=== PATIENT | female | born 1945 | race Caucasian/White ===

== ENCOUNTER 2018-08-24 18:37 | Emergency (ER) | payer MEDICARE, MEDICAID, SELFPAY ==
[2018-08-24] VITALS (9 sets, daily range): BP systolic 126–170; BP diastolic 41–89; PULSE 31–35; RESP 11–16; TEMP 36.6; O2SAT 95–97
--- NOTE | 2018-08-24 18:50 | ED.GENADUL_ITS ---
Discharge Plan Disposition Patient Disposition: TOBI [facility]WELL ([facility]) Condition: Critical Discharge Details Chief Complaint: SOB Clinical Impression: Third degree heart block, Bradycardia Primary Care Provider: Mariteta Villela ED Provider: Rusty Maria Home Meds and New Rx's Prescriptions: No Action vitamin E 200 unit capsule 200 unit PO DAILY RF: 0 cholecalciferol (vitamin D3) 1,000 unit capsule 1,000 unit PO DAILY RF: 0 ascorbic acid (vitamin C) [Vitamin C] 500 MG tablet 500 mg PO DAILY RF: 0 magnesium 250 MG tablet 250 mg PO TID RF: 0 levothyroxine [Synthroid] 112 MCG tablet 112 mcg PO DAILY RF: 0 zinc gluconate-zinc picolinate 30 MG capsule 30 mg PO ONCE RF: 0 VITAMIN B COMPLEX 1 EACH tablet 1 tab-cap PO DAILY RF: 0 Discharge Data Discharge Date/Time-TO BE ENTERED AT DEPARTURE: 08/24/18 21:03 Medical Decision Making 19:00 --73-year-old female with history of hypothyroidism, here with dyspnea on exertion and palpitations, sent from primary care physician with concern for second or third-degree heart block on ECG. ECG reviewed and interpreted by me: Third-degree heart block with ventricular escape rate at 31 bpm. BP stable. Pacer pads applied. --I obtained and reviewed outside hospital records: Primary care [employer]LE[employer] OR [employer]PER[employer] note from Marietta Villela, TELETYPE OR [employer]ARD OPERATOR was reviewed -patient was seen today in the office and had an EKG that appears to be third-degree heart block. 19:35 -- I called [facility] and no beds available. Possible available beds tomorrow. Patient refuses to be care for at [facility] because of prior experience and requests [facility] consultation - she understands [facility] is farther. Call to [facility] transfer center to request cardiology consultation and transfer. 19:45 -- Spoke with Dr. Loving who will accept patient in emergent transfer. ECG sent for review. -- Labs reviewed: no electrolyte abnormalities. TSH nl. No leukocytosis. AST and ALT elevated - unclear etiology. These have not been elevated on prior labs in system. Patient consents to transfer. HPI General Mode of arrival: ambulatory . Date/Time Provider Initiated Documentation: 08/24/18 18:49 . Limitations to Documentation: no limitations . Information obtained by: patient . HPI Narrative: 73-year-old female presents to the emergency department after referral from primary care physician for concern for heart block. Patient notes that she is been having dyspnea on exertion and palpitations over the past 2 days. Patient denies chest pain. No syncope. Patient did have recent dental infection that was treated with 10-day course of penicillin. She denies fever. She is quite anxious about seeking care and treatment. I was asked to speak with the patient in the waiting room about recommendation from primary care physician to be seen in the emergency department. Patient was initially reluctant to register and be seen. After prolonged discussion in the waiting room, she was agreeable to medical screening and initiating workup. Related Data Home Medications Medication Instructions Recorded Confirmed Vitamin B Complex 1 tab-cap PO DAILY tab-cap 08/20/13 08/24/18 ascorbic acid (vitamin C) [Vitamin 500 mg PO DAILY 08/20/13 08/24/18 C] levothyroxine [Synthroid] 112 mcg PO DAILY tab-cap 08/20/13 08/24/18 magnesium 250 mg PO TID 08/20/13 08/24/18 zinc gluconate-zinc picolinate 30 mg PO ONCE 08/20/13 08/24/18 cholecalciferol (vitamin D3) 1,000 1,000 unit PO DAILY 09/12/18 09/12/18 unit capsule vitamin E 200 unit capsule 200 unit PO DAILY 09/12/18 09/12/18 Allergies Allergy/AdvReac Type Severity Reaction Status Date / Time No Known Drug Allergies Allergy Unverified 09/12/18 11:38 Review of Systems Review of Systems All systems reviewed & are unremarkable except as noted in HPI and below Constitutional Denies fever(s) Cardiovascular Reports dyspnea on exertion Respiratory Reports dyspnea on exertion [facility] Medical History Family history of ovarian cancer Hypothyroid Surgical History Dilation and curettage Family History Mother No problems noted. Social History Smoking/Tobacco Use Status: Current-Occasional Drug use: Occasionally Additional Social history: pt is not alone to assess privately Exam Const General: well developed and anxious Orientation: alert and awake HENMT Mouth: moist mucous membranes Eyes Conjunctivae: normal conjunctivae Sclera: normal sclerae Neck Neck: trachea midline, supple and no JVD Thyroid: no masses and nontender Resp Auscultation: clear to auscultation bilaterally, no rales, no rhonchi and no wheezes Cardio Jugular venous pressure: no JVD Rate: regular rate and not tachycardic Rhythm: regular rhythm Heart Sounds: murmur systolic I/ GI Palpation: soft, not firm, no guarding, no masses, not rigid and nontender Skin General skin exam: no rashes or lesions noted Neuro General: alert, awake, oriented x3 and tone normal Extrem General: no calf tenderness bilaterally and no edema Psych Appearance: grossly normal Speech and Movement: speech and movement normal Affect: anxious affect
[2018-08-24 19:40] LABS: Abs Immature Grans 0.03 k/cumm (0.0-0.09); Absolute Basophil Count 0.02 k/cumm (0.0-0.2); Absolute Eosinophil Count 0.05 k/cumm (0.0-0.7); Absolute Lymphocyte Count 1.76 k/cumm (1.2-3.4); Absolute Monocyte Count 0.86 k/cumm (0.11-0.7); Basophils % 0.2; Eosinophils % 0.6; HCT 39.1 % (36.0-46.0); HGB 12.9 g/dL (12.0-15.5); Immature Grans % 0.3; Lymphocytes % 20.4; Mean Corpuscular Hemoglobin 30.5 pg (27.0-33.0); Mean Corpuscular Volume 92.4 fL (80-95); Mean Platelet Volume 11.8 fL (8.0-11.0); Neutrophils % 68.5; Platelet Count 190 x1000/uL (130-400); RBC 4.23 m/cumm (4.00-5.20); White Blood Cell Count 8.62 k/cumm (4.4-10.8)
[2018-08-24 19:52] LABS: ALT 161 U/L (12-78); AST 75 U/L (15-37); Albumin 3.4 g/dL (3.4-5.0); Alkaline Phosphatase 93 U/L (46-116); Anion Gap 11.4 mmol/L (3-11); BUN 19 mg/dL (7-18); Bilirubin, Total 0.4 mg/dL (0.2-1.0); CO2 24.6 mmol/L (21.0-32.0); CREATININE 0.94 mg/dL (0.55-1.02); Chloride 105 mmol/L (98-107); Estimated GFR 58.21 (mL/min/1.73m2); Glucose 111 mg/dL (70-100); Magnesium 1.9 mg/dL (1.8-2.4); Sodium 141 mmol/L (136-145); Total Protein 6.8 g/dL (6.4-8.2); Troponin I 0.05 ng/mL (0.00-0.06)
== END 2018-08-24 21:03 | disposition short-term general hospital (02) ==
PROVIDERS: Emergency Provider Student in an Organized Health Care Education/Training Program; PCP Nurse Practitioner Family
DX: I44.2 Atrioventricular block, complete (principal); R00.2 Palpitations; E03.9 Hypothyroidism, unspecified; R00.1 Bradycardia, unspecified
CPT/HCPCS: 36415; 80053; 93005; 99284; 83735; 84443; 84484; 85025; 93010

== ENCOUNTER 2018-09-05 11:16 | Outpatient (REF) | payer MEDICARE, MEDICAID, SELFPAY ==
[2018-09-05 19:27] LABS: Hemoglobin A1C 5.8 % (4.5-6.2)
[2018-09-05 20:00] LABS: Iron 75 ug/dL (50-175); Total Iron Binding Capacity 317 ug/dL (250-450); Transferrin Sat 24 % (15-50)
[2018-09-05 20:14] LABS: Ferritin 226 ng/mL (8-388)
[2018-09-07 10:32] LABS: Hepatitis C Ab w Rflx HCV PCR Negative (NEGAT)
[2018-09-07 11:36] LABS: Hepatitis B Surface Ag Negative (NEGAT)
[2018-09-07 11:46] LABS: HBs Antibody, Quant <3.1 mIU/mL; Hepatitis B Surface Ab Negative
== END 2018-09-05 11:36 ==
LOC: NCHCN 11:16
PROVIDERS: PCP Nurse Practitioner Family; Visit Provider Nurse Practitioner Family
DX: Z95.0 Presence of cardiac pacemaker (principal); R94.5 Abnormal results of liver function studies; R74.8 Abnormal levels of other serum enzymes
CPT/HCPCS: 86706; 86803; 87340; 82728; 83036; 83540; 83550

== ENCOUNTER → 2018-09-12 11:23 | Outpatient (BNVA) | payer MEDICARE, MEDICAID, SELFPAY | PROVIDERS: PCP Nurse Practitioner Family; Visit Provider Nurse Practitioner Primary Care | DX: I44.2 Atrioventricular block, complete (principal); R03.0 Elevated blood-pressure reading, without diagnosis of hypertension; Z45.018 Encounter for adjustment and management of other part of cardiac pacemaker | CPT/HCPCS: 93288; 99204; 99215 ==

== ENCOUNTER → 2018-11-14 11:49 | Outpatient (BNVA) | payer MEDICARE, MEDICAID, SELFPAY | PROVIDERS: PCP Nurse Practitioner Family; Visit Provider Nurse Practitioner Primary Care | DX: I44.2 Atrioventricular block, complete (principal); R03.0 Elevated blood-pressure reading, without diagnosis of hypertension; I47.1 Supraventricular tachycardia; Z45.018 Encounter for adjustment and management of other part of cardiac pacemaker | CPT/HCPCS: 93288; 99214 ==

== ENCOUNTER 2019-02-14 09:24 | Outpatient (REF) | payer MEDICARE, MEDICAID, SELFPAY ==
[2019-02-14 22:18] LABS: ALT 20 U/L (14-59); AST 17 U/L (15-37); Albumin 3.8 g/dL (3.4-5.0); Alkaline Phosphatase 91 U/L (46-116); Bilirubin, Direct 0.09 mg/dL (0.00-0.20); Bilirubin, Total 0.6 mg/dL (0.2-1.0); Total Protein 7.4 g/dL (6.4-8.2)
[2019-02-14 22:33] LABS: Calculated LDL 163 mg/dL; Cholesterol 226 mg/dL (50-200); HDL Cholesterol 41 mg/dL (40-60); Triglyceride 110 mg/dL (30-150)
== END 2019-02-14 09:44 ==
LOC: NCHCN 09:24
PROVIDERS: PCP Nurse Practitioner Family; Visit Provider Nurse Practitioner Family
DX: R94.5 Abnormal results of liver function studies (principal); E78.89 Other lipoprotein metabolism disorders
CPT/HCPCS: 80061; 80076

== ENCOUNTER 2019-03-08 01:03 | Outpatient (CLI) | payer MEDICARE, MEDICAID, SELFPAY ==
--- NOTE | 2019-03-08 13:00 | DI.MAMMO_ITS ---
EXAM: MG MAMMO SCREENING CLINICAL HISTORY: SCREENING , [facility] Z00.00. TECHNIQUE: Mammograms were interpreted according to the usual protocol including computer analysis w [employer] CAD system, tomosynthesis and C-view imaging. FINDINGS: The breasts are of moderate density with fairly symmetrical distribution of fibroglandular tissue. N o dominant mass or clumped microcalcification identified in either breast. The current examination is compared with previous examinations including May 2013 and there has been no gross interval pollard ge appearance comparison the previous studies. IMPRESSION: No specific evidence of malignancy at this time. Routine screening examinations are suggested at year ly intervals in this age group according to the ACS ACR guidelines. Category 1. Breast density, categ oryB. BI-RADS Cat 1 - Negative. Breast Density - Category B - Scattered areas of fibroglandular density.
== END 2019-03-08 01:23 ==
PROVIDERS: PCP Nurse Practitioner Family; Visit Provider Nurse Practitioner Family
DX: Z12.31 Encounter for screening mammogram for malignant neoplasm of breast (principal)
CPT/HCPCS: 77063; 77067

== ENCOUNTER 2019-07-03 13:35 | Emergency (ER) | payer MEDICARE, MEDICAID, SELFPAY ==
[2019-07-03 13:44] VITALS: BP 163/65; PULSE 79; RESP 18; TEMP 36.5; O2SAT 97
--- NOTE | 2019-07-03 14:41 | DI.RAD_ITS ---
EXAM: XR WRIST RT COMPLETE INDICATION: pain, injury. COMPARISON: No exams were available for comparison TECHNIQUE: 2D digital imaging was performed. FINDINGS: There is a transverse fracture through the distal metaphysis of the right radius. There is dorsal an gulation and posterior displacement of the distal fracture. There is a comminuted fracture of the di stal right ulna. There is impaction and mild displacement of the fracture noted. There are mild deg enerative changes seen at the 1st carpometacarpal joint. There is soft tissue swelling about the wri st. IMPRESSION: Fractures involving the distal right radius and ulna as described above.
--- NOTE | 2019-07-03 14:55 | DI.RAD_ITS ---
EXAM: XR HAND RT COMPLETE INDICATION: pain, injury. COMPARISON: No exams were available for comparison TECHNIQUE: 2D digital imaging was performed. FINDINGS: There are again seen fractures involving the distal radius and ulna. These are described on the x-ra y of the right wrist. No other fracture or dislocation of the hand is seen. There are mild degenera tive changes seen in the hand and wrist. There is soft tissue swelling of the wrist. IMPRESSION: Distal right radial and ulnar fractures noted. Please see the report on the x-ray of the right wrist . No other fracture or dislocation is identified.
--- NOTE | 2019-07-03 16:30 | ED.GENADUL_ITS ---
Discharge Plan Disposition Patient Disposition: HOME Condition: Stable Discharge Details Chief Complaint: Orthopedic Clinical Impression: Fracture of wrist Primary Care Provider: Marietta Villela ED Provider: Marija Clements Home Meds and New Rx's Prescriptions: No Action vitamin E 200 unit capsule 200 unit PO DAILY RF: 0 cholecalciferol (vitamin D3) 1,000 unit capsule 1,000 unit PO DAILY RF: 0 ascorbic acid (vitamin C) [Vitamin C] 500 MG tablet 500 mg PO DAILY RF: 0 magnesium 250 MG tablet 250 mg PO TID RF: 0 levothyroxine [Synthroid] 112 MCG tablet 112 mcg PO DAILY RF: 0 zinc gluconate-zinc picolinate 30 MG capsule 30 mg PO ONCE RF: 0 VITAMIN B COMPLEX 1 EACH tablet 1 tab-cap PO DAILY RF: 0 hydrocodone-acetaminophen 5-325 mg tablet 1 tab PO Q8H PRN PRN (Reason: pain) Qty: 6 RF: 0 acetaminophen 500 mg tablet 500 mg PO Q6H PRN PRN (Reason: pain) Qty: 60 RF: 3 ibuprofen 600 mg tablet 600 mg PO TID PRNQty: 30 RF: 3 Discharge Instructions Instructions: Wrist Fracture in Adults (ED) Additional Instructions: Rest. Activities as tolerated. Elevate injury to prevent swelling. Do not wear sling at night. Keep wrist splint in place, clean and dry. Tylenol every 6 hours for soreness if needed over the counter for comfort. Orthopedic doctors office will call you in the morning and arrange for a time for you to arrive to the emergency room. Nothing to eat or drink after midnight tonight Return for any worsening or concerns sooner if needed. Referrals: Malik Cervantes MD [ [facility] STAFF PHYSICIAN] - Discharge Data Discharge Date/Time-TO BE ENTERED AT DEPARTURE: 07/03/19 16:47 Medical Decision Making <SANDRA Lazo - Last Filed: 07/04/19 17:06> Very pleasant 74-year-old patient who slipped on ice falling onto the right wrist. Patient presents with a deformity to the wrist, focal wrist pain. No open wounds. Distal neurovascularly intact. Patient has no other apparent injuries. Patient has no other sites of pain. X-rays reveal radial and ulnar fractures of the right wrist with angulation and displacement. Spoke with Dr. Cervantes who reviewed patient's x-rays and recommends intraoperative reduction of this patient's fracture. Office will call the patient tomorrow morning to arrange for surgical reduction tomorrow. Recommended patient remain n.p.o. overnight, volar splint be placed. Dr. Maria splinted the patient Surgical staff to call the patient in the morning to arrange for surgical reduction tomorrow. Patient to be n.p.o. after midnight. Rice encouraged. sling provided for elevation. Recommended no use of sling at night. Patient agrees with plan of care. Patient seeking discharge home at this time. The patient was stable and requested discharge. Prior to discharge, my usual and customary return precautions were reviewed with the patient - this included follow-up instructions and reasons to return to the Emergency Department if conditions worsens, does not improve as expected, or other new concerns arise. <Rusty Maria MD - Last Filed: 07/03/19 22:26> Patient was evaluated by SANDRA Tovar. I was asked to assist in the care of this patient by applying volarly splint for wrist fracture. Plaster volar splint was placed by me right wrist. Patient tolerated splinting well. Patient was neurovascular intact post splint application. HPI <SANDRA Lazo - Last Filed: 07/04/19 17:06> General Date/Time Provider Initiated Documentation: 07/03/19 14:23 . HPI Narrative: This is a pleasant 74-year-old woman presenting to the emergency room for slip and fall on ice landing on her right arm this morning. Patient complaining of right wrist pain specifically. Patient denies striking head neck or back. Denies headache, loss of consciousness, dizziness, nausea, vomiting. No vision change or tinnitus. Denies any neck or back pain. Patient presents with Neil wrap in place over right wrist. Patient denies any left-sided arm pain or lower extremity complaints. Patient is very specific about her wrist being the only site of pain. Patient denies associated numbness, tingling. Pain with any attempts of range of motion. Patient denies any open wounds associated. Related Data Home Medications Medication Instructions Recorded Confirmed Vitamin B Complex 1 tab-cap PO DAILY tab-cap 08/20/13 07/03/19 ascorbic acid (vitamin C) [Vitamin 500 mg PO DAILY 08/20/13 07/03/19 C] levothyroxine [Synthroid] 112 mcg PO DAILY tab-cap 08/20/13 07/03/19 magnesium 250 mg PO TID 08/20/13 07/03/19 zinc gluconate-zinc picolinate 30 mg PO ONCE 08/20/13 07/03/19 cholecalciferol (vitamin D3) 25 1,000 unit PO DAILY 09/12/18 07/03/19 mcg (1,000 unit) capsule vitamin E 200 unit capsule 200 unit PO DAILY 09/12/18 07/03/19 acetaminophen 500 mg PO Q6H PRN PRN #60 tab 07/04/19 hydrocodone-acetaminophen 1 tab PO Q8H PRN PRN #6 tab 07/04/19 ibuprofen 600 mg PO TID PRN #30 tab 07/04/19 Previous Rx's Medication Instructions Recorded acetaminophen 500 mg PO Q6H PRN PRN #60 tab 07/04/19 hydrocodone-acetaminophen 1 tab PO Q8H PRN PRN #6 tab 07/04/19 ibuprofen 600 mg PO TID PRN #30 tab 07/04/19 Allergies Allergy/AdvReac Type Severity Reaction Status Date / Time tetanus toxoid, adsorbed AdvReac Mild Skin Rash Unverified 07/04/19 11:07 General Stated Complaint: Orthopedic ROBE: 4 Review of Systems <SANDRA Lazo - Last Filed: 07/04/19 17:06> Constitutional Constitutional: Denies headache(s) Eyes Eyes: Denies blurry vision ENT Ears, Nose, Mouth, and Throat: Denies dizziness, Denies ear discharge, Denies headache(s), Denies nasal discharge, Denies neck pain and Denies tinnitus Cardiovascular Cardiovascular: Denies chest pain Gastrointestinal Gastrointestinal: Denies abdominal pain Musculoskeletal Musculoskeletal: Denies abnormal gait, Denies back pain, Reports deformity (Right wrist), Reports joint swelling, Reports limited range of motion (Right wrist), Denies neck pain, Denies numbness and Denies tingling Integumentary/Breasts Skin/Breast: Denies wounds Neurologic Neurologic: Denies abnormal gait, Denies dizziness, Denies headache(s), Denies numbness and Denies tingling PFS <SANDRA Lazo - Last Filed: 07/04/19 17:06> Medical History Complete heart block (Acute) Elevated BP without diagnosis of hypertension (Acute) Family history of ovarian cancer mother ovarian CA 65yo Hypothyroid Pacemaker (Acute) Pacemaker (Acute) July 2018, insertion Submandibular gland infection (Acute) Surgical History Dilation and curettage in her 20s. ETOP. Social History Smoking/Tobacco Use Status: Current-Occasional Tobacco Type: cigarettes Alcohol Intake: never Drug use: Occasionally Substance use type: marijuana Details: pt. puts marijuana and tobacco together rolled. Pt .smoked three this morning Current gender identity: female Do you feel safe at home: Yes Do you feel safe in your relationship?: Yes Additional Social history: pt is not alone to assess privately Exam <SANDRA Lazo - Last Filed: 07/04/19 17:06> Narrative Exam Narrative: CONST: Healthy appearing patient, in no acute distress. Well hydrated. Alert and alert. NECK: Normal visual inspection. FROM. No lymphadenopathy. Trachea midline. No Midline tenderness. CHEST: Normal insepection of the chest. RESP: Normal respiratory effort. Speaking full sentences. No cough. No wheezing. No retractions. Clear to auscaltation. Breath sound equal and present bilaterally. CARDIO: No JVD. Normal PMI. Regular Rate. Regular Rhythm. Normal peripheral pulses. GI: Normal inspection of abdomen. No distension. Soft. Nontender. Bowel sounds present in all 4 quadrants. No rebound. No gaurding. MUSCULOSKELETAL: Normal Gait. Benign shoulder, humeral and elbow exam. Right wrist with obvious deformity present, mild pain with palpation. Distal neurovascularly intact. Sensation intact distally. Pulses present. Cap refill normal. Left arm exam normal. Lower extremity exam normal Skin: No open wounds. No rashes. NEURO: Alert and awake. Speech clear. PSYCH: Normal affect. Cooperative. Course <SANDRA Lazo - Last Filed: 07/04/19 17:06> Vital Signs Vital signs: Vital Signs Temperature 36.5 C 07/03/19 13:44 Pulse 79 07/03/19 13:44 Respiratory Rate 18 07/03/19 13:44 Blood Pressure 163/65 H 07/03/19 13:44 Pulse Oximetry 97 07/03/19 13:44 Temperature 36.5 C 07/03/19 13:44 Temperature Source Skin 07/03/19 13:44 Pulse 79 07/03/19 13:44 Respiratory Rate 18 07/03/19 13:44 Respiratory Effort 07/03/19 15:12 Blood Pressure 163/65 H 07/03/19 13:44 Pulse Oximetry 97 07/03/19 13:44 Oxygen Delivery Method Room Air 07/03/19 13:44 Oxygen Flow Rate 0 07/03/19 13:44 Pain Level 3 07/03/19 15:12
== END 2019-07-03 16:47 | disposition home or self-care (01) ==
PROVIDERS: Emergency Provider Physician Assistant; PCP Nurse Practitioner Family
DX: S52.321A Displaced transverse fracture of shaft of right radius, initial encounter for closed fracture (principal); S52.221A Displaced transverse fracture of shaft of right ulna, initial encounter for closed fracture; W00.0XXA Fall on same level due to ice and snow, initial encounter
CPT/HCPCS: 29125; 99284; 73110; 73130; 99283

== ENCOUNTER 2019-07-04 10:50 | Day surgery (SDC) | payer MEDICARE, MEDICAID, SELFPAY ==
--- NOTE | 2019-07-04 10:50 | W.PREOPHP ---
Documented by User: Malik Cervantes MD 07/04/19 10:52 Assessment and Plan Assessment and plan (1) Closed fracture of right distal radius and ulna: Status: Acute History of Present Illness History of Present Illness Chief Complaint: Right Wrist Fracture Narrative: Ana is a 74-year-old who slipped and fell on the ice yesterday. She had immediate pain and deformity of the right hand and wrist. She was seen in the emergency department and diagnosed with a displaced distal radius fracture including the distal ulna. I was called about the wrist fracture where I recommended closed reduction to be done in the operating room with anesthesia. She was brought in today to the same-day surgery area. She complains of pain and swelling to the right hand. She denies any numbness or tingling. She has been keeping it elevated. She is n.p.o. Review of Systems All systems reviewed & are unremarkable except as noted in HPI and below PFSH Medical History (Updated 07/04/19 @ 11:25 by Amberly Ricardo) Complete heart block (Acute) Elevated BP without diagnosis of hypertension (Acute) Family history of ovarian cancer mother ovarian CA 65yo Hypothyroid Pacemaker (Acute) Pacemaker (Acute) July 2018, insertion Submandibular gland infection (Acute) Surgical History Dilation and curettage in her 20s. ETOP. Family History Mother , ovarian CA at age 65. No problems noted. Social History Smoking/Tobacco Use Status: Current-Occasional Tobacco Type: cigarettes Alcohol Intake: never Drug use: Occasionally Substance use type: marijuana Details: pt. puts marijuana and tobacco together rolled. Pt .smoked three this morning Current gender identity: female Do you feel safe at home: Yes Do you feel safe in your relationship?: Yes Additional Social history: pt is not alone to assess privately Meds Home Medications and Allergies Home Medications Medication Instructions Recorded Confirmed Type Vitamin B Complex 1 tab-cap PO DAILY tab-cap 08/20/13 07/03/19 History ascorbic acid (vitamin C) [Vitamin 500 mg PO DAILY 08/20/13 07/03/19 History C] levothyroxine [Synthroid] 112 mcg PO DAILY tab-cap 08/20/13 07/03/19 History magnesium 250 mg PO TID 08/20/13 07/03/19 History zinc gluconate-zinc picolinate 30 mg PO ONCE 08/20/13 07/03/19 History cholecalciferol (vitamin D3) 25 1,000 unit PO DAILY 09/12/18 07/03/19 History mcg (1,000 unit) capsule vitamin E 200 unit capsule 200 unit PO DAILY 09/12/18 07/03/19 History acetaminophen 500 mg PO Q6H PRN PRN #60 tab 07/04/19 Rx hydrocodone-acetaminophen 1 tab PO Q8H PRN PRN #6 tab 07/04/19 Rx ibuprofen 600 mg PO TID PRN #30 tab 07/04/19 Rx Allergies Allergy/AdvReac Type Severity Reaction Status Date / Time tetanus toxoid, adsorbed AdvReac Mild Skin Rash Unverified 07/04/19 11:07 Exam Const General: cooperative, healthy appearing, comfortable and no acute distress Nutritional Appearance: average body habitus Orientation: alert, awake and oriented x3 Resp Effort & Inspection: normal respiratory effort Auscultation: clear to auscultation bilaterally Cardio Rate: regular rate Rhythm: regular rhythm Extrem Other: Right upper extremity is in a splint. There is notable swelling about the fingers. She is able to demonstrate active thumb extension and thumb flexion as well as index finger extension of flexion. Sensation intact light touch of the median, radial, ulnar nerves. Capillary refill less than 2 seconds. Results Imaging Imaging Studies: X-ray of the right wrist demonstrates a displaced distal radius and ulna fracture. There is shortening, dorsal angulation, and radial translation of the fracture fragments. It appears to be a primary X reticular fracture with a possible intra-articular split which is nondisplaced. Documented by User: Edita Etienne 07/04/19 12:19 Assessment and Plan Assessment and plan (1) Closed fracture of right distal radius and ulna: Status: Acute Assessment and plan: Plan: Educated patient on surgery covering surgical technique, recovery process, benefits and risks in detail. After discussion patient gives verbal understanding of risks and elects to proceed with scheduling surgery. Patient had opportunity to have questions answered to their satisfaction. They will contact office if issues arise. Patient will continue to be scheduled for closed reduction of her right wrist fracture with Dr. Cervantes. History of Present Illness Narrative: Ms. Bernstein is a 74-year-old female who presents to hospital for closed reduction of her right wrist with Dr. Cervantes. Patient fell yesterday and went to the ER at which time she was diagnosed with a displaced fracture of the distal radius and ulna. Due to the angulation recommended she have closed reduction at which time Dr. Cervantes was contacted. Patient was placed in a volar splint overnight. She denies any additional falls or injuries. She denies any changes in her medical history since her ER visit. She did have a pacemaker placed at [facility] in July 2018. Denies any chest pain. Review of Systems Cardiovascular Cardiovascular: Denies chest pain, Denies dyspnea and Denies dyspnea on exertion Respiratory Respiratory: Denies dyspnea and Denies dyspnea on exertion [facility] Medical History (Updated 07/04/19 @ 11:25 by Amberly Ricardo) Complete heart block (Acute) Elevated BP without diagnosis of hypertension (Acute) Family history of ovarian cancer mother ovarian CA 65yo Hypothyroid Pacemaker (Acute) Pacemaker (Acute) July 2018, insertion Submandibular gland infection (Acute) Surgical History Dilation and curettage in her 20s. ETOP. Family History Mother , ovarian CA at age 65. No problems noted. Social History Smoking/Tobacco Use Status: Current-Occasional Tobacco Type: cigarettes Alcohol Intake: never Drug use: Occasionally Substance use type: marijuana Details: pt. puts marijuana and tobacco together rolled. Pt .smoked three this morning Current gender identity: female Do you feel safe at home: Yes Do you feel safe in your relationship?: Yes Additional Social history: pt is not alone to assess privately Meds Home Medications and Allergies Home Medications Medication Instructions Recorded Confirmed Type Vitamin B Complex 1 tab-cap PO DAILY tab-cap 08/20/13 07/03/19 History ascorbic acid (vitamin C) [Vitamin 500 mg PO DAILY 08/20/13 07/03/19 History C] levothyroxine [Synthroid] 112 mcg PO DAILY tab-cap 08/20/13 07/03/19 History magnesium 250 mg PO TID 08/20/13 07/03/19 History zinc gluconate-zinc picolinate 30 mg PO ONCE 08/20/13 07/03/19 History cholecalciferol (vitamin D3) 25 1,000 unit PO DAILY 09/12/18 07/03/19 History mcg (1,000 unit) capsule vitamin E 200 unit capsule 200 unit PO DAILY 09/12/18 07/03/19 History acetaminophen 500 mg PO Q6H PRN PRN #60 tab 07/04/19 Rx hydrocodone-acetaminophen 1 tab PO Q8H PRN PRN #6 tab 07/04/19 Rx ibuprofen 600 mg PO TID PRN #30 tab 07/04/19 Rx Allergies Allergy/AdvReac Type Severity Reaction Status Date / Time tetanus toxoid, adsorbed AdvReac Mild Skin Rash Unverified 07/04/19 11:07
[2019-07-04 11:26] VITALS: BP 127/74; PULSE 82; RESP 18; TEMP 36.5; O2SAT 94
--- NOTE | 2019-07-04 11:41 | W.PM.DSUDISC ---
Discharge Plan Disposition Patient Disposition: HOME Condition: Good Discharge Details Reason For Visit: Right Distal Radius/Ulna Fracture Attending Provider: Malik Cervantes Primary Care Provider: Marietta Villela Home Meds and New Rx's Prescriptions: New hydrocodone-acetaminophen 5-325 mg tablet 1 tab PO Q8H PRN PRN (Reason: pain) Qty: 6 RF: 0 acetaminophen 500 mg tablet 500 mg PO Q6H PRN PRN (Reason: pain) Qty: 60 RF: 3 ibuprofen 600 mg tablet 600 mg PO TID PRNQty: 30 RF: 3 Continued vitamin E 200 unit capsule 200 unit PO DAILY RF: 0 cholecalciferol (vitamin D3) 1,000 unit capsule 1,000 unit PO DAILY RF: 0 ascorbic acid (vitamin C) [Vitamin C] 500 MG tablet 500 mg PO DAILY RF: 0 magnesium 250 MG tablet 250 mg PO TID RF: 0 levothyroxine [Synthroid] 112 MCG tablet 112 mcg PO DAILY RF: 0 zinc gluconate-zinc picolinate 30 MG capsule 30 mg PO ONCE RF: 0 VITAMIN B COMPLEX 1 EACH tablet 1 tab-cap PO DAILY RF: 0 Discontinued acetaminophen [Tylenol Extra Strength] 500 mg Tablet 750 mg PO Q6H PRNRF: 0 Discharge Instructions Additional Instructions: Activity: You should keep the hand/wrist elevated as much as possible for the first few days. You may use the other fingers as tolerated but avoid trying to do too much too soon. You may perform light activities with the splint in place. Dressing/Cast: Your splint should stay in place at all times. Do NOT get it wet. You may loosen the ROSITA wrap if you feel it is too tight and then rewrap more loosely. Medications: - You should take Tylenol and Ibuprofen for baseline pain control. - You have been prescribed a stronger pain medication, Hydrocodone, for breakthrough pain. - You may apply ice over the wrist, just double bag so it doesn't get wet. Follow-up: 7 days Referrals: Malik Cervantes MD [ [facility] STAFF PHYSICIAN] - Equipment/Supplies: Splint and Sling Activity:: Elevate Remove Dressings/Wound Care:: Do Not Remove Shower/Bathe:: Cover Diet:: As Tolerated Discharge Orders Discharge Orders: Discharge Order (Routine); Ordered 07/04/19 Ordered By: Malik Cervantes DS: Diagnosis Discharge Diagnosis (1) Closed fracture of right distal radius and ulna: Status: Acute
[2019-07-04] MEDS: Lactated Ringers 1,000 ML 80 ML IV (12:00)
--- NOTE | 2019-07-04 12:40 | DI.RAD_ITS ---
EXAM: XR FOREARM RT CLINICAL HISTORY: CLOSED REDUCTION RIGHT ARM FX IN OR. TECHNIQUE: 2D and realtime digital imaging was performed. Fluoroscopy was utilized by Dr. Cervantes during the closed reduction of the distal radial and ulnar fractures. COMPARISON: XR WRIST RT COMPLETE from 07/03/2019 FINDINGS: The images provided show anatomic alignment of the fractures. Please refer to the procedure report f or complete details. Fluoro Time: 14.8 seconds IMPRESSION:
[2019-07-04] MEDS: Bupivacaine 0.5% Pres-Free 30 ML VIAL IJ (12:43)
[2019-07-04 13:42] VITALS: BP 133/78; PULSE 74; RESP 16; TEMP 36.1; O2SAT 93
--- NOTE | 2019-07-05 07:15 | W.PM.OP ---
Date of service: 07/04/19 Time of Service: 13:15 Operative Note Operative Note DATE OF PROCEDURE: 07/04/19 PRE-OP DIAGNOSIS: Right distal radius fracture POST-OP DIAGNOSIS: same PROCEDURE: Close reduction and splinting of right distal radius fracture SURGEON: Malik Cervantes ANESTHESIA: HERMINIA ESTIMATED BLOOD LOSS: 0 PATHOLOGY: none sent COMPLICATIONS: None Patient was transported to: PACU Patient's condition: stable Indications: Ana is a 74-year-old [id number] female who presented to the emergency department for a left distal radius fracture. Given the deformity, displacement, fracture pattern, and effect on daily function, I recommended a closed reduction under anesthesia. I reviewed the risk of the procedure to include stiffness, damage to nerves and vessels, loss of reduction, malunion, nonunion, tendon rupture, cast complications, need for repeat procedures. Despite these risks, the patient elected to proceed. Findings: There is a distal radius fracture which had a primary extra-articular component with a nondisplaced intra-articular split. It was reduced and held with a sugar tong splint Procedure Description: Ana was greeted in the preoperative holding area. The correct patient and site was confirmed and marked. The history and physical was updated. The consent was reviewed the patient and signed. The patient was taken to the operating room and placed in the supine position. All bony problems were well-padded. A timeout was performed for safe surgery. The right arm was then placed into fingertrap traction. A hematoma block was administered using 10 cc of 0.5% bupivacaine. A standard reduction technique of over distraction, longitudinal traction and recreation of the normal anatomy was performed. The first x-ray showed that while the alignment was improved there is still a volar piece which was not keyed. Therefore, it was reattempted with successive keying in the volar fragment piece. The alignment appeared anatomic. A plaster sugar tong splint was then applied and molded. Final x-ray showed significantly improved fracture positioning. Patient was transferred back to the PACU in stable condition.
== END 2019-07-04 14:25 | disposition home or self-care (01) ==
PROVIDERS: PCP Nurse Practitioner Family; Visit Provider Student in an Organized Health Care Education/Training Program
PROC: (CPT 25605; principal; 2019-07-04 12:30)
DX: S52.551A Other extraarticular fracture of lower end of right radius, initial encounter for closed fracture (principal); W00.0XXA Fall on same level due to ice and snow, initial encounter
CPT/HCPCS: 25605; NC; 73090; J1100; J1885; J2001; J2250; J2405; J3010

== ENCOUNTER 2019-07-13 08:20 | Outpatient (CLI) | payer MEDICARE, MEDICAID, SELFPAY ==
--- NOTE | 2019-07-13 07:45 | DI.RAD_ITS ---
EXAM: XR WRIST RT COMPLETE INDICATION: f/u R distal radius fracture. COMPARISON: XR WRIST RT COMPLETE from 07/03/2019 XR FOREARM RT from 07/04/2019 TECHNIQUE: 2D digital imaging was performed. FINDINGS: There has been no change in alignment of the fractures of the distal right radius and ulna since 09/2019. The patient's wrist is in a cast. This does obscure the underlying bony detail. Degenerati ve changes are seen at the 1st carpometacarpal joint.
== END 2019-07-13 08:40 ==
PROVIDERS: PCP Nurse Practitioner Family; Visit Provider Student in an Organized Health Care Education/Training Program
DX: M18.11 Unilateral primary osteoarthritis of first carpometacarpal joint, right hand; S52.501D Unspecified fracture of the lower end of right radius, subsequent encounter for closed fracture with routine healing; S52.601D Unspecified fracture of lower end of right ulna, subsequent encounter for closed fracture with routine healing; X58.XXXD Exposure to other specified factors, subsequent encounter
CPT/HCPCS: 99213; 73110

== ENCOUNTER 2019-07-26 10:42 | Outpatient (CLI) | payer MEDICARE, MEDICAID, SELFPAY ==
--- NOTE | 2019-07-26 09:30 | DI.RAD_ITS ---
EXAM: XR WRIST RT LIMITED INDICATION: f/u R distal radius fracture. COMPARISON: XR WRIST RT COMPLETE from 07/13/2019 TECHNIQUE: 2D digital imaging was performed. FINDINGS: The cast has been removed. There has been no change in the alignment of the comminuted distal radial and distal ulnar fractures. Carpal bones appear intact. IMPRESSION: No change in distal radial and ulnar fractures. DATA REPOSITORY: RADIATION DOSE DELIVERED:
== END 2019-07-26 11:02 ==
PROVIDERS: PCP Nurse Practitioner Family; Visit Provider Student in an Organized Health Care Education/Training Program
DX: S52.221D Displaced transverse fracture of shaft of right ulna, subsequent encounter for closed fracture with routine healing (principal); S52.321D Displaced transverse fracture of shaft of right radius, subsequent encounter for closed fracture with routine healing; S52.501D Unspecified fracture of the lower end of right radius, subsequent encounter for closed fracture with routine healing; S52.601D Unspecified fracture of lower end of right ulna, subsequent encounter for closed fracture with routine healing; X58.XXXD Exposure to other specified factors, subsequent encounter
CPT/HCPCS: 73100; L3908

== ENCOUNTER → 2019-08-01 14:04 | Outpatient (BNVA) | payer MEDICARE, MEDICAID, SELFPAY | PROVIDERS: PCP Nurse Practitioner Family; Referring Provider Nurse Practitioner Family; Visit Provider Internal Medicine Cardiovascular Disease | DX: I44.2 Atrioventricular block, complete (principal); Z45.018 Encounter for adjustment and management of other part of cardiac pacemaker | CPT/HCPCS: 93280; 99212 ==

== ENCOUNTER → 2019-10-15 10:56 | Outpatient (BNVA) | payer MEDICARE, MEDICAID, SELFPAY | PROVIDERS: PCP Nurse Practitioner Family; Referring Provider Nurse Practitioner Family; Visit Provider Student in an Organized Health Care Education/Training Program | DX: S52.501D Unspecified fracture of the lower end of right radius, subsequent encounter for closed fracture with routine healing (principal); S52.601D Unspecified fracture of lower end of right ulna, subsequent encounter for closed fracture with routine healing; X58.XXXD Exposure to other specified factors, subsequent encounter | CPT/HCPCS: 99213 ==

== ENCOUNTER 2020-01-14 11:11 | Outpatient (REF) | payer MEDICARE, MEDICAID, SELFPAY ==
[2020-01-14 20:51] LABS: Vitamin D 25 Total 24.4 ng/ml (30-100)
== END 2020-01-14 11:31 ==
LOC: NCHCN 11:11
PROVIDERS: PCP Nurse Practitioner Family; Visit Provider Nurse Practitioner Family
DX: E03.9 Hypothyroidism, unspecified (principal); E55.9 Vitamin D deficiency, unspecified
CPT/HCPCS: 82306; 84443; 84630

== ENCOUNTER → 2020-02-13 14:02 | Outpatient (BNVA) | payer MEDICARE, MEDICAID, SELFPAY | PROVIDERS: PCP Nurse Practitioner Family; Referring Provider Nurse Practitioner Family; Visit Provider Physician Assistant | DX: I44.2 Atrioventricular block, complete (principal); Z45.018 Encounter for adjustment and management of other part of cardiac pacemaker | CPT/HCPCS: 93280; 99212 ==

== ENCOUNTER 2020-08-04 04:29 | Outpatient (CLI) | payer MEDICARE, MEDICAID, SELFPAY ==
[2020-08-04 12:24] LABS: Anion Gap 10.9 mmol/L (3-11); BUN 15 mg/dL (7-18); CO2 26.1 mmol/L (21.0-32.0); CREATININE 0.8 mg/dL (0.55-1.02); Calcium 9.2 mg/dL (8.5-10.1); Calculated LDL 162 mg/dL (<100); Chloride 106 mmol/L (98-107); Cholesterol 239 mg/dL (<200); Glucose 95 mg/dL (74-106); HDL Cholesterol 59 mg/dL (40-60); Potassium 4.1 mmol/L (3.5-5.1); Sodium 143 mmol/L (136-145); TSH 3.22 uIU/mL (0.36-3.74); Triglyceride 91 mg/dL (<150)
[2020-08-04 12:38] LABS: Vitamin D 25 Total 20.6 ng/ml (30-100)
[2020-08-06 10:43] LABS: Parathyroid Hormone,Intact 69 pg/mL (19-88)
== END 2020-08-04 04:30 | disposition home or self-care (01) ==
LOC: LBO 04:31
PROVIDERS: PCP Nurse Practitioner Family; Visit Provider Nurse Practitioner Family
DX: E78.5 Hyperlipidemia, unspecified (principal); E03.9 Hypothyroidism, unspecified; M85.80 Other specified disorders of bone density and structure, unspecified site; E55.9 Vitamin D deficiency, unspecified; R89.9 Unspecified abnormal finding in specimens from other organs, systems and tissues
CPT/HCPCS: 36415; 80048; 80061; 82306; 82652; 83970; 84443

== ENCOUNTER 2020-12-12 10:30 | Outpatient (REF) | payer MEDICARE, MEDICAID, SELFPAY ==
[2020-12-13 13:42] LABS: Vitamin D 25 Total 26.4 ng/mL (30-100)
== END 2020-12-12 10:31 | disposition home or self-care (01) ==
LOC: NCHCN 10:30
PROVIDERS: PCP Nurse Practitioner Family; Visit Provider Nurse Practitioner Family
DX: E55.9 Vitamin D deficiency, unspecified (principal)
CPT/HCPCS: 82306

== ENCOUNTER 2021-04-20 15:15 | Outpatient (REF) | payer MEDICARE, MEDICAID, SELFPAY ==
[2021-04-20 19:57] LABS: TSH (W/Ref FT4) 1.07 uIU/mL (0.36-3.74)
[2021-04-20 20:47] LABS: Vitamin D 25 Total 37.4 ng/mL (30-100)
== END 2021-04-20 15:16 | disposition home or self-care (01) ==
LOC: NCHCN 15:15
PROVIDERS: PCP Nurse Practitioner Family; Visit Provider Nurse Practitioner Family
DX: E03.9 Hypothyroidism, unspecified (principal); E55.9 Vitamin D deficiency, unspecified
CPT/HCPCS: 82306; 84443

== ENCOUNTER 2022-04-07 03:22 | Outpatient (CLI) | payer MEDICARE, SELFPAY ==
[2022-04-07 15:06] LABS: FREE T4 1.09 ng/dL (0.76-1.46); TSH 2.15 uIU/mL (0.36-3.74)
[2022-04-07 16:43] LABS: Vitamin D 25 Total 26.8 ng/mL (30-100)
== END 2022-04-07 03:23 | disposition home or self-care (01) ==
LOC: LBO 03:22
PROVIDERS: PCP Nurse Practitioner Family; Visit Provider Nurse Practitioner Family
DX: E03.9 Hypothyroidism, unspecified (principal); E55.9 Vitamin D deficiency, unspecified
CPT/HCPCS: 82306; 84439; 84443

== ENCOUNTER 2022-12-01 14:49 | Outpatient (CLI) | payer MEDICARE, SELFPAY ==
--- NOTE | 2022-12-01 14:45 | RT.EKG_ITS ---
APPROVED REPORT Exam: Resting ECG Reason for Exam: [facility] Patient Location: O HR:81 bpm ECG Measurements Heart Rate 81 AXIS UT 224 P [id number] QRSd 121 QRS -15 QT 401 T 107 QTc 466 Conclusion Atrial-sensed ventricular-paced complexes...other complexes also detected No further analysis attempted due to paced rhythm
== END 2022-12-01 14:50 | disposition home or self-care (01) ==
LOC: DI.CARD 14:53
PROVIDERS: PCP Nurse Practitioner Family; Referring Provider Nurse Practitioner Family; Visit Provider Internal Medicine Cardiovascular Disease
DX: I44.2 Atrioventricular block, complete (principal); Z95.0 Presence of cardiac pacemaker
CPT/HCPCS: 93010

== ENCOUNTER → 2022-12-01 14:49 | Outpatient (BNVA) | payer MEDICARE, MEDICAID, SELFPAY | PROVIDERS: PCP Nurse Practitioner Family; Referring Provider Nurse Practitioner Family; Visit Provider Internal Medicine Cardiovascular Disease | DX: Z45.018 Encounter for adjustment and management of other part of cardiac pacemaker (principal); I48.91 Unspecified atrial fibrillation | CPT/HCPCS: 93005; 93280; 99213 ==

== ENCOUNTER → 2024-01-04 10:10 | Outpatient (BNVA) | payer MEDICARE, MEDICAID, SELFPAY | PROVIDERS: PCP Nurse Practitioner Family; Visit Provider Internal Medicine Cardiovascular Disease | DX: Z95.810 Presence of automatic (implantable) cardiac defibrillator (principal); I44.2 Atrioventricular block, complete; I48.91 Unspecified atrial fibrillation | CPT/HCPCS: 93280 ==

== ENCOUNTER 2024-03-22 16:52 | Outpatient (REF) | payer MEDICARE, MEDICAID, SELFPAY ==
[2024-03-22 19:22] LABS: HCT 45.5 % (36.0-46.0); HGB 14.8 g/dL (11.2-15.7); MCH 30.1 pg (27.0-33.0); MCHC 32.5 % (32.0-36.0); MCV 93 fL (80-95); MPV 12.2 fL (8.0-11.0); Platelet Count 211 10^3/uL (130-400); RBC 4.92 10^6/uL (3.93-5.22); RDW 13.1 % (11.7-14.6); RDW-SD 44.6 fL; WBC 9.08 10^3/uL (4.4-10.8)
[2024-03-22 19:55] LABS: ALT 23 U/L (14-59); AST 21 U/L (15-37); Albumin 3.8 g/dL (3.4-5.0); Alkaline Phosphatase 98 U/L (46-116); Anion Gap 7.5 mmol/L (3-11); BUN 17 mg/dL (7-18); Bilirubin, Total 0.55 mg/dL (0.2-1.0); CO2 28.5 mmol/L (21.0-32.0); CREATININE 0.8 mg/dL (0.55-1.02); Calcium 9.5 mg/dL (8.5-10.1); Chloride 106 mmol/L (98-107); Glucose 99 mg/dL (74-106); Sodium 142 mmol/L (136-145); TSH (W/Ref FT4) 0.77 uIU/mL (0.36-3.74); Total Protein 7.8 g/dL (6.4-8.2); Vitamin D 25 Total 21.3 ng/mL (30-100)
== END 2024-03-22 16:53 | disposition home or self-care (01) ==
LOC: NCHCN 16:52
PROVIDERS: PCP Nurse Practitioner Family; Visit Provider Family Medicine
DX: E03.9 Hypothyroidism, unspecified (principal)
CPT/HCPCS: 80053; 82306; 85027; 84443

== ENCOUNTER 2024-09-26 10:30 | Outpatient (REF) | payer MEDICARE, MEDICAID, SELFPAY ==
[2024-09-26 17:41] LABS: TSH 1.53 uIU/mL (0.36-3.74); Vitamin B12 767 pg/mL (193-986); Vitamin D 25 Total 21 ng/mL (30-100)
[2024-09-26 17:50] LABS: Hemoglobin A1C 5.7 % (<5.7)
== END 2024-09-26 10:31 | disposition home or self-care (01) ==
LOC: NCHCN 10:30
PROVIDERS: PCP Family Medicine; Visit Provider Family Medicine
DX: Z13.1 Encounter for screening for diabetes mellitus (principal); E03.9 Hypothyroidism, unspecified; E55.9 Vitamin D deficiency, unspecified; G64 Other disorders of peripheral nervous system
CPT/HCPCS: 82306; 82607; 83036; 84439; 84443

== ENCOUNTER 2025-04-17 07:44 | Outpatient (CLI) | payer MEDICARE, MEDICAID, SELFPAY ==
--- NOTE | 2025-04-17 07:30 | RT.EKG_ITS ---
APPROVED REPORT Exam: Resting ECG Reason for Exam: afib Patient Location: O HR:90 bpm ECG Measurements Heart Rate 90 AXIS DE 156 P 85 QRSd 128 QRS 23 QT 389 T 91 QTc 476 Conclusion Sinus rhythm...normal P axis, V-rate 50- 99 Ventricular premature complex...V complex w/ short R-R interval Left bundle branch block...QRSd>120, broad/notched R
== END 2025-04-17 07:45 | disposition home or self-care (01) ==
LOC: DI.CARD 07:45
PROVIDERS: PCP Family Medicine; Visit Provider Registered Nurse
DX: I44.2 Atrioventricular block, complete (principal); I48.91 Unspecified atrial fibrillation; Z95.0 Presence of cardiac pacemaker
CPT/HCPCS: 93010

== ENCOUNTER → 2025-04-17 13:24 | Outpatient (BNVA) | payer MEDICARE, MEDICAID, SELFPAY | PROVIDERS: PCP Family Medicine; Visit Provider Registered Nurse | DX: I48.91 Unspecified atrial fibrillation (principal); Z45.018 Encounter for adjustment and management of other part of cardiac pacemaker; I44.2 Atrioventricular block, complete | CPT/HCPCS: 93005; 93280 ==